=== PATIENT | female | born 1945 | race Caucasian/White ===

== ENCOUNTER 2016-09-13 14:15 | Inpatient (IN) | payer MEDICARE ==
[~2016-09-13] VITALS: Ht 167.6 cm; Wt 68.9 kg
[~2016-09-13 14:15] MED LIST: AMLO2.5T PO; ATEN50TA PO; FLUO40CA PO; GLIM2TAB PO; LISI40TA PO; NORT25CA PO
[2016-09-30] MEDS ORDERED: SODIUM CHLOR 0.9% 250 ML INJ 250 ML ONE (06:16)
[2016-09-30] MEDS ORDERED: VANCOMYCIN HCL 1000 MG VIAL ONE (06:16)
[2016-09-30] MEDS ORDERED: LACTATED RINGER'S 1000 ML INJ 1,000 ML ONE (06:16)
[2016-09-30 06:18] VITALS: BP 143/79; PULSE 53; RESP 18; TEMP 97.9; O2SAT 93
[2016-09-30] MEDS: TRANEXAMIC ACID INJ 985 MG in SODIUM CHLORIDE 0.9% INJ 100 ML IV SCH ×2 (06:30→07:30)
[2016-09-30] MEDS: SODIUM CHLORID 0.9% 500 ML IV SCH ×2 (06:30→20:40)
[2016-09-30] MEDS: EXPAREL PERI-ARTICULAR INJECTION (TOTAL VOL. 60 ML) P-ARTICULR SCH ×4 (06:30→07:49)
[2016-09-30] MEDS ORDERED: VANCOMYCIN 1000 MG/NS 250 ML (for <70 kg) IV SCH ×2 (06:30)
[2016-09-30] MEDS ORDERED: INSULIN HUMAN REGULAR 1,000 UNITS/10 ML VIAL SQ PRN (06:30)
[2016-09-30] MEDS ORDERED: LACTATED RINGER'S 1000 ML IV SCH (06:30)
[2016-09-30] MEDS ORDERED: ceFAZolin 2 GM PREMIX 50 ML IV SCH (06:30)
[2016-09-30] MEDS ORDERED: METOPROLOL TARTRATE 25 MG TAB PO PRN (06:30)
[2016-09-30] MEDS: CHLORHEXIDINE GLUCONATE 4% SOLN 120 ML BTL TOP SCH ×2 (06:30→23:38)
[2016-09-30] MEDS ORDERED: GENTAMICIN SULFATE 80 MG/2 ML VIAL ONE (07:00)
[2016-09-30] MEDS ORDERED: ACETAMINOPHEN 1000 MG/100 ML VIAL IV ONE (07:03)
[2016-09-30] MEDS ORDERED: HYDR-3366 PO (07:58)
[2016-09-30] MEDS ORDERED: XARE10TA PO (07:58)
[2016-09-30] MEDS ORDERED: WALKER WHEELS/F1 MIS (07:58)
--- NOTE | 2016-09-30 07:59 | HHI.FF ---
Face to Face Verification Diagnosis: (1) S/P total hip arthroplasty Physical Therapy Gait training Hip: Total hip, Protocol: Left Right LE Weight Bearing: WB as tolerated Left LE Weight Bearing: WB as tolerated Nursing Dressing Changes: Daily dressing change, Coverderm/Primapore (begin xeroform on POD 10) I have seen patient Marichuy Masters on 09/30/16. My clinical findings support the need for the requested home health care services because: Ltd mobility - disease progression I certify that my clinical findings support that this patient is homebound because: Post-op weakness Angel Merchant Sep 30, 2016 07:59
[2016-09-30] MEDS ORDERED: MORPHINE SULFATE 4 MG/ML INJ IV PUSH PRN (09:30)
[2016-09-30] MEDS ORDERED: Post-op Orders (for Pharmacy) MISC XX ONE (09:30)
[2016-09-30] MEDS ORDERED: NALOXONE HCL 0.4 MG/ML AMP IV PRN (09:30)
[2016-09-30] MEDS ORDERED: ONDANSETRON HCL 4 MG/2 ML VIAL IVP PRN (09:30)
[2016-09-30] MEDS ORDERED: SODIUM CHLORIDE 0.9% FLUSH 5 ML FLUSH IVF PRN (09:30)
--- NOTE | 2016-09-30 09:38 | PD.OP ---
cc: Sandip Mccormick MD Operative Report Date of Surgery: Sep 30, 2016 Preoperative Diagnosis: Severe left hip osteoarthritis Postoperative Diagnosis: Procedure: Left hip replacement by anterior approach Anesthesia: Gen. Surgeon: Sandip Mccormick Arabic Professor(s): MANI Mccarthy PA-C The surgical procedure was assisted by my physician assistant professor of communication. My P.A. presence was necessary throughout this case for the manipulation and positioning of the surgical extremity. My P.A. was assisting me throughout the duration of this procedure. The skill set of a physician assistant professor of communication was medically necessary to complete this procedure. During the surgical case the surgical supervisor was working at the back table and the physician assistant professor of communication was directly assisting me. Operation and Findings: PLAN OF ACTIVITY Weight bear as tolerated. DRAINS: 7-mm SOHAIL drain. IMPLANTS USED DePuy Corail size 11 KLA collared stem with a size [in situ] Hooper Gription cup and a [36+1.5] ceramic Biolox ceramic head. DETAILS OF PROCEDURE: This patient has a long history of hip pain. Patient was found to have severe osteoarthritis. The patient had radiographic evidence of joint space narrowing with [id number] arthritis and osteophytes around the acetabulum as well as the femoral head. There was also some cystic changes. The patient failed conservative treatment with pain medications, anti-inflammatories, physical therapy, assistive devices including a cane, as well as therapeutic injection of the hip. Patient's hip arthritis was limiting his ability to ambulate and perform activities of daily living. The patient wished to proceed with surgery and informed consent was obtained. Operative site was marked. I discussed both posterior approach and anterior approach with the patient and decision was made for anterior approach. Patient was brought to OR and placed on OR table. IV sedation and general anesthesia was administered by anesthesiologist. Patient positioned on a Wendie table and was given IV antibiotics. Time-out procedure was performed. The hip and thigh were prepped with alcohol followed by Hibiclens. The thigh was draped in the usual sterile fashion. Clean Air Suite was used for this procedure. The procedure began with a 5-inch incision over the anterolateral thigh. Subcutaneous tissue was dissected with Bovie. The fascia over the tensa fasciae latae was incised. Care was taken to avoid injury to the lateral femoral cutaneous nerve. The tensor muscle was retracted laterally. Sartorius was retracted medially. Retractors were now placed. The reflected head of the rectus is now elevated. A capsulotomy was performed over the anterior head capsule. Sutures were placed to help retract the capsule. At this point the femoral head and neck were identified. With soft tissue protected, oscillating saw was used to make a cut through the femoral neck, the femoral head was now removed. At this point attention was turned to preparation of the acetabulum. The labrum was excised. The acetabulum was sequentially reamed up to size 52. A [52] Hooper cup was now placed. Fluoroscopy was used to aid in identification of appropriate version. Cup was fully impacted and found to have excellent fit. Hole eliminator was now placed. The liner was now impacted into the cup. At this point the hip was externally rotated. A hook was placed around the proximal femur. The capsule was released off the lateral and medial femur. The hip was now extended and adducted. Retractors were placed around the proximal femur to allow for exposure. A box osteotome was used to remove the lateral cortex of the femoral neck. A broach was used to help lateralize the prosthesis. Canal finder was used to create a path down the canal. Next, the canal was sequentially broached up to size [11]. This was found to be an excellent fit. Calcar planer was placed. A standard head was placed, hip was reduced. Trial head was now was placed and the hip was found to have excellent stability with good range of motion. The leg lengths were measured under fluoroscopy and found to be equal compared to preoperatively. Trial broach was removed. The Corail stem was opened. Stem was fully impacted into the proximal femur in appropriate version. The femoral head was placed. The hip was again reduced. Fluoroscopy confirmed excellent alignment of prosthesis. The wound was thoroughly irrigated and capsule was closed with #1 Vicryl. The fascia over the tensor fasciae muscle was closed with #1 Vicryl, subcutaneous tissue was closed with 3-0 Vicryl and the skin was closed with lauren and Dermabond skin closure. The capsule layers were injected with a mixture of saline and bupivicaine. Dressings were applied. The patient was transferred to Recovery Room in stable condition. Sandip Mccormick MD Sep 30, 2016 09:38
--- NOTE | 2016-09-30 09:52 | RADRPT ---
EXAM DATE/TIME: 09/30/2016 08:46 [facility] COMPARISON: No previous studies available for comparison. INDICATIONS : Post-op total left hip arthroplasty. MEDICAL HISTORY : None. SURGICAL HISTORY : None. ENCOUNTER: Initial ACUITY: 1 day PAIN SCORE: Non-responsive. LOCATION: Left Hip. FINDINGS: The patient is status post a total hip arthroplasty with a bipolar prosthesis. Prosthesis is well-sea mike. Alignment is anatomic. A fracture is not appreciated. CONCLUSION: Anatomic alignment. Dannie Mccullough MD FACR Board Certified Radiologist. This report was verified electronically.
[2016-09-30] MEDS: KETOROLAC TROMETHAMINE 30 MG/ML (IVP) VIAL IV PUSH SCH ×2 (10:00→22:33)
[2016-09-30] MEDS: LACTATED RINGER'S 1000 ML INJ 1,000 ML IV SCH ×2 (10:00→22:29)
[2016-09-30] MEDS ORDERED: fentaNYL CITRATE 250 MCG/5 ML AMP ONE (10:05)
[2016-09-30] MEDS ORDERED: MIDAZOLAM HCL 2 MG/2 ML VIAL ONE (10:05)
[2016-09-30] MEDS ORDERED: MORPHINE SULFATE 4 MG/ML INJ ONE (10:05)
[2016-09-30] MEDS ORDERED: DO NOT ADM ANY ANTICOAGULANT DRUGS XX PRN (10:15)
[2016-09-30] MEDS ORDERED: *morphine SULFATE 8 MG/ML PERIprocedure ONLY ONE ×3 (10:22→10:45)
--- NOTE | 2016-09-30 10:48 | RADRPT ---
EXAM DATE/TIME: 09/30/2016 10:12 [facility] COMPARISON: No previous studies available for comparison. INDICATIONS : Post left hip surgery MEDICAL HISTORY : None. SURGICAL HISTORY : None. ENCOUNTER: Initial ACUITY: 1 day PAIN SCORE: Non-responsive. LOCATION: Left hip FINDINGS: The patient is status post a total hip arthroplasty with a bipolar prosthesis. Prosthesis is well-sea mike. Alignment is anatomic. A fracture is not appreciated. CONCLUSION: Anatomic alignment. Dannie Mccullough MD FACR Board Certified Radiologist. This report was verified electronically.
[2016-09-30] MEDS ORDERED: *HYDROmorphone PF 1 MG VIAL PERIprocedural Use ONLY ONE (10:51)
[2016-09-30 11:30] VITALS: BP 123/58; PULSE 55; RESP 18; TEMP 95.6; O2SAT 94
[2016-09-30] MEDS: ceFAZolin 2 GM PREMIX 50 ML IV SCH ×2 (12:28→18:38)
[2016-09-30] MEDS ORDERED: ePHEDrine/NS 50 MG/5 ML SYR IV ONE (14:49)
[2016-09-30] MEDS ORDERED: PROPOFOL 200 MG/20 ML AMP IV ONE (14:49)
[2016-09-30] MEDS ORDERED: PHENYLEPH/NS 1000 MCG/10 ML SYR IV ONE (14:49)
[2016-09-30] MEDS ORDERED: SODIUM CHLOR 0.9% 250 ML INJ 250 ML IV ONE (14:49)
[2016-09-30] MEDS ORDERED: NEOSTIGMINE 3 MG/3 ML SYR IV ONE (14:49)
[2016-09-30] MEDS ORDERED: LACTATED RINGER'S 1000 ML INJ 2,000 ML IV ONE (14:49)
[2016-09-30] MEDS ORDERED: ONDANSETRON HCL 4 MG/2 ML VIAL IV PUSH ONE (14:49)
[2016-09-30 16:00] VITALS: BP 113/60; PULSE 60; RESP 18; TEMP 96; O2SAT 95
[2016-09-30] MEDS: VANCOMYCIN INJ 1,000 MG in SODIUM CHLOR 0.9% 250 ML INJ 250 ML IV SCH (17:06)
[2016-09-30 20:14] VITALS: BP 116/56; PULSE 65; RESP 16; TEMP 96; O2SAT 96
[2016-09-30] MEDS: SODIUM CHLORIDE 0.9% FLUSH 5 ML FLUSH IVF SCH (20:40)
[2016-10-01] VITALS (7 sets, daily range): BP systolic 103–125; BP diastolic 50–69; PULSE 65–89; RESP 16–18; TEMP 96.2–98.9; O2SAT 93–97
[2016-10-01] MEDS: ceFAZolin 2 GM PREMIX 50 ML IV SCH (01:35)
[2016-10-01 05:21] LABS: HEMATOCRIT 28.6 % (35.0-46.0)
[2016-10-01 05:30] LABS: REVIEW FLAG FINAL
[2016-10-01] MEDS: VANCOMYCIN INJ 1,000 MG in SODIUM CHLOR 0.9% 250 ML INJ 250 ML IV SCH (06:08)
--- NOTE | 2016-10-01 06:32 | PD.ORT.PN ---
Subjective Subjective Remarks Complaining of pain in her left calf and hip. Objective Vitals Vital Signs Date Time Temp Pulse Resp B/P Pulse Ox O2 Delivery O2 Flow Rate FiO2 10/01/16 04:29 96.7 70 16 118/55 93 10/01/16 00:12 96.2 65 17 103/50 95 09/30/16 20:14 96.0 65 16 116/56 96 09/30/16 16:00 96.0 60 18 113/60 95 09/30/16 11:30 95.6 55 18 123/58 94 09/30/16 11:15 97.6 53 12 113/60 97 Nasal Cannula 3 09/30/16 11:00 52 12 121/65 97 Nasal Cannula 3 09/30/16 10:45 54 12 138/71 97 Nasal Cannula 3 09/30/16 10:30 54 12 144/72 99 Nasal Cannula 3 09/30/16 10:15 54 12 134/72 99 Nasal Cannula 4 09/30/16 10:00 97.6 66 12 146/74 98 Nasal Cannula 4 I/O 09/30/16 09/30/16 09/30/16 10/01/16 10/01/16 10/01/16 07:00 15:00 23:00 07:00 15:00 23:00 Intake Total 2000 ml 1280 ml 764 ml Output Total 1650 ml 285 ml 85 ml Balance 350 ml 995 ml 679 ml Intake Oral 480 ml IV Total 800 ml 764 ml Other 2000 ml Output Urine Total 1300 ml 200 ml Drainage Total 50 ml 85 ml 85 ml Estimated Blood Loss 300 ml # Bowel Movements 0 Result Diagram: 10/01/16 0412 Imaging Last 24 hours Impressions Hip and Pelvis X-Ray 09/30/16 0929 Signed Impressions: Service Date/Time: Friday, September 30, 2016 10:12 - CONCLUSION: Anatomic alignment. Dannie Mccullough MD Objective Remarks Left lower extremity: Clean dry dressings intact with drain. Moderate tenderness with hip motion. Knee range of motion from 0 to 110 mild tenderness to palpation of calf. Negative Homans sign. Distally intact sensation. Weak dorsiflexion and plantar flexion of foot Assessment & Plan Ortho Post Op Day #: 1 Problem List: (1) S/P total hip arthroplasty Assessment and Plan Left lower extremity: Weightbearing as tolerated with posterior hip precautions PT twice a day DC drain this afternoon at 3 PM We'll reassess calf tendernessif it continues we will get a Doppler ultrasound this afternoon Daily dressing changes beginning POD 2 Lovenox Incentive spirometry DC planning with home health care follow-up with Dr. Mccormick or SHAYAN in 2 weeks JOAN PERALTA PA-C Oct 01, 2016 06:32
[2016-10-01] MEDS: SODIUM CHLORIDE 0.9% FLUSH 5 ML FLUSH IVF SCH ×2 (09:00→20:15)
[2016-10-01] MEDS: ACETAMINOPHEN/HYDROcodone 325 MG/10 MG TAB PO PRN ×2 (10:08→22:08)
[2016-10-01] MEDS: ENOXAPARIN SODIUM 40 MG/0.4 ML SYRINGE SQ SCH (10:08)
[2016-10-01] MEDS: KETOROLAC TROMETHAMINE 30 MG/ML (IVP) VIAL IV PUSH SCH ×2 (10:08→22:08)
[2016-10-01] MEDS: LACTATED RINGER'S 1000 ML INJ 1,000 ML IV SCH ×2 (11:00→20:15)
[2016-10-01] MEDS: CHLORHEXIDINE GLUCONATE 4% SOLN 120 ML BTL TOP SCH (19:46)
[2016-10-01] MEDS: DOCUSATE SODIUM 100 MG CAP PO SCH (20:15)
[2016-10-02 00:13] VITALS: BP 122/61; PULSE 89; RESP 16; TEMP 98.4; O2SAT 95
--- NOTE | 2016-10-02 07:05 | PD.ORT.PN ---
Subjective Subjective Remarks Improvement with physical therapy and no pain complaints to left calf Objective Vitals Vital Signs Date Time Temp Pulse Resp B/P Pulse Ox O2 Delivery O2 Flow Rate FiO2 10/02/16 00:13 98.4 89 16 122/61 95 10/01/16 20:12 98.9 89 17 123/65 94 10/01/16 16:22 97.5 72 16 120/69 97 10/01/16 12:20 98.0 72 18 124/60 97 10/01/16 09:09 96 21 10/01/16 08:09 97.4 77 16 125/59 96 I/O 10/01/16 10/01/16 10/01/16 10/02/16 10/02/16 10/02/16 07:00 15:00 23:00 07:00 15:00 23:00 Intake Total 1004 ml 780 ml 381 ml 360 ml Output Total 560 ml Balance 444 ml 780 ml 381 ml 360 ml Intake Oral 240 ml 780 ml 240 ml 360 ml IV Total 764 ml 141 ml Output Urine Total 475 ml Drainage Total 85 ml # Voids 3 1 1 # Bowel Movements 0 0 0 Result Diagram: 10/01/16 0412 Imaging Last 24 hours Impressions Hip and Pelvis X-Ray 09/30/16 0929 Signed Impressions: Service Date/Time: Friday, September 30, 2016 10:12 - CONCLUSION: Anatomic alignment. Dannie Mccullough MD Objective Remarks Left lower extremity: Clean dry dressings intact with drain. Moderate tenderness with hip motion. Knee range of motion from 0 to 110 no tenderness to palpation of calf. Negative Homans sign. Distally intact sensation. strong dorsiflexion and plantar flexion of foot Assessment & Plan Problem List: (1) S/P total hip arthroplasty Assessment and Plan Left lower extremity: Weightbearing as tolerated with posterior hip precautions PT twice a day Daily dressing changes Lovenox Incentive spirometry DC planning with home health care today or tomorrow when cleared by PT follow-up with Dr. Mccormick or SHAYAN in 2 weeks JOAN PERALTA PA-C Oct 02, 2016 07:04
[2016-10-02 08:00] VITALS: BP 159/70; PULSE 91; RESP 18; TEMP 99.8; O2SAT 94
[2016-10-02] MEDS ORDERED: BISACODYL EC 5 MG TABEC PO SCH (09:00)
[2016-10-02] MEDS ORDERED: MAGNESIUM HYDROXIDE SUSP 30 ML CUP PO SCH (09:00)
[2016-10-02] MEDS: SODIUM CHLORIDE 0.9% FLUSH 5 ML FLUSH IVF SCH (09:00)
[2016-10-02] MEDS ORDERED: POLYETHYLENE GLYCOL 17 GM PKG PO SCH (09:00)
[2016-10-02] MEDS: ENOXAPARIN SODIUM 40 MG/0.4 ML SYRINGE SQ SCH (09:27)
[2016-10-02] MEDS: ACETAMINOPHEN/HYDROcodone 325 MG/10 MG TAB PO PRN ×2 (09:27→15:41)
[2016-10-02] MEDS: DOCUSATE SODIUM 100 MG CAP PO SCH (09:27)
[2016-10-02 12:00] VITALS: BP 114/55; PULSE 90; RESP 18; TEMP 97.6; O2SAT 96
[2016-10-02] MEDS: LACTATED RINGER'S 1000 ML INJ 1,000 ML IV SCH (12:00)
== END 2016-10-02 19:16 | disposition home health service (06) | DRG 470 ==
LOC: HSDI 09-30 05:43 → N06B 09-30 11:34
PROVIDERS: ADMIT Orthopaedic Surgery Orthopaedic Trauma; ATTEND Orthopaedic Surgery Orthopaedic Trauma
PROC: 0SRB04A Replacement of Left Hip Joint with Ceramic on Polyethylene Synthetic Substitute, Uncemented, Open Approach (ICD-10-PCS; principal; 2016-09-30 07:16)
DX: M16.12 Unilateral primary osteoarthritis, left hip (principal); I34.1 Nonrheumatic mitral (valve) prolapse; E11.9 Type 2 diabetes mellitus without complications; I10 Essential (primary) hypertension; E78.5 Hyperlipidemia, unspecified; F32.9 Major depressive disorder, single episode, unspecified; M81.0 Age-related osteoporosis without current pathological fracture; Z79.84 Long term (current) use of oral hypoglycemic drugs
CPT/HCPCS: 73501; 73502; 76000; 85014; 85018; 86850; 86900; 86901; C1776; C9290; J0131; J0690; J1170; J1580; J1650; J1885; J2250; J2270; J2370; J2405; J2710; J3010; J3370; J7050; J7120

== ENCOUNTER → 2016-09-17 | Outpatient (CLI) | payer MEDICARE ==
[~2016-09-17] MED LIST changes: +HYDR-3366 PO; +MACR100C2 PO; +WALKER WHEELS/F1 MIS; +XARE10TA PO
[2016-09-17 15:48] LABS: MRSA PCR NEGATIVE (NEGATIVE); STAPH AUREUS PCR NEGATIVE (NEGATIVE)
== END ==
LOC: CPRE 11:06
PROVIDERS: ATTEND Orthopaedic Surgery Orthopaedic Trauma
DX: Z01.812 Encounter for preprocedural laboratory examination (principal); M16.12 Unilateral primary osteoarthritis, left hip
CPT/HCPCS: 87640; 87641

== ENCOUNTER → 2017-01-29 | Day surgery (SDC) | payer MEDICARE ==
[~2017-01-29] MED LIST changes: +BUPIVACAINE/EPINEPHRINE 0.5% 50 ML VIAL ONE; +BUPIVACAINE/EPINEPHRINE 0.5% PF 10 ML VIAL ONE; +ISOSULFAN BLUE 50 MG/5 ML VIAL SQ ONE; +KETOROLAC TROMETHAMINE 30 MG/ML (IVP) VIAL IV PUSH ONE; +LACTATED RINGER'S 1000 ML INJ 1,000 ML ONE; -MACR100C2 PO; +MIDAZOLAM HCL 2 MG/2 ML VIAL ONE; +ONDANSETRON HCL 4 MG/2 ML VIAL IV PUSH ONE; +PROPOFOL 200 MG/20 ML AMP IV ONE; +SODIUM CHLORIDE 0.9% INJ 10 ML ONE; +ceFAZolin 2 GM PREMIX 50 ML ONE; +oxyCODONE/ACETAMINOPHEN 5 MG/325 MG TAB ONE
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
== END | disposition home or self-care (01) ==
LOC: ESDC 08:19
PROVIDERS: ATTEND Surgery
DX: C50.912 Malignant neoplasm of unspecified site of left female breast (principal)
CPT/HCPCS: 00400; 01610; 19303; 38525; 38792; 88305; 88307; J0690; J1885; J2250; J2405; J3010; J7120; Q9968

== ENCOUNTER → 2017-02-14 | Day surgery (SDC) | payer MEDICARE ==
[~2017-02-14] MED LIST changes: +BUPIVACAINE HCL PF 0.5% 10 ML VIAL ONE; -BUPIVACAINE/EPINEPHRINE 0.5% 50 ML VIAL ONE; -BUPIVACAINE/EPINEPHRINE 0.5% PF 10 ML VIAL ONE; -ISOSULFAN BLUE 50 MG/5 ML VIAL SQ ONE; -KETOROLAC TROMETHAMINE 30 MG/ML (IVP) VIAL IV PUSH ONE; +KETOROLAC TROMETHAMINE 30 MG/ML (IVP) VIAL ONE; +MORPHINE SULFATE 4 MG/ML INJ ONE; -SODIUM CHLORIDE 0.9% INJ 10 ML ONE; -oxyCODONE/ACETAMINOPHEN 5 MG/325 MG TAB ONE
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
== END | disposition home or self-care (01) ==
LOC: ESDC 12:05
PROVIDERS: ATTEND Surgery
DX: C50.912 Malignant neoplasm of unspecified site of left female breast (principal); T81.4XXA Infection following a procedure, initial encounter; Z92.3 Personal history of irradiation; B95.62 Methicillin resistant Staphylococcus aureus infection as the cause of diseases classified elsewhere
CPT/HCPCS: 00400; 11043; 11046; 19301; 86403; 87015; 87070; 87102; 87116; 87186; 87205; 87206; 88307; J0690; J1885; J2250; J2270; J2405; J3010; J7120; 88305